=== PATIENT | female | born 1975 | race Caucasian/White ===

== ENCOUNTER 2017-04-04 19:43 | Emergency (ER) | payer OTHER ==
[2017-04-04] MEDS: HYDROCODONE/APAP (5/325) TAB PO (22:08)
[2017-04-04] MEDS: ONDANSETRON (ODT) 4 MG TAB ODT (22:08)
[2017-04-04] MEDS: DIPHTH/TET/ACEL PERTUSS (ADULT) 0.5 ML VIAL IM* (22:10)
[2017-04-04] MEDS: LIDOCAINE 2%/EPI MPF (SDV) 20 ML VIAL INJ (22:10)
[2017-04-04] MEDS: morphine 4 MG/ML VIAL IV (22:31)
[2017-04-04] MEDS: CEFTRIAXONE 1 GM/50 ML (PMX) 50 ML IVPB (22:31)
[2017-04-04] MEDS: VANCOMYCIN 1 GM (PMX) 250 ML IVPB (22:33)
[2017-04-04] MEDS: SOD CHLORIDE 0.9% 1,000 ML IV (22:33)
[2017-04-04] MEDS: LIDOCAINE 1%/EPI 30 ML INJ INJ (23:14)
[2017-04-05] MEDS: DIPHENHYDRAMINE 50 MG INJ IV (00:23)
== END 2017-04-05 01:45 | disposition home or self-care (01) ==
LOC: FTE 04-05 01:45 → E/R 19:43
DX: S81.811A Laceration without foreign body, right lower leg, initial encounter (principal); W54.0XXA Bitten by dog, initial encounter; Y92.9 Unspecified place or not applicable; Z23 Encounter for immunization
CPT/HCPCS: 12004; 73590; 90471; 90715; 96365; 96366; 96368; 96375; 99284-25

== ENCOUNTER 2017-04-07 12:12 | Emergency (ER) | payer OTHER | END 2017-04-07 14:42 | disposition home or self-care (01) | LOC: E/R 14:42 | DX: Z48.01 Encounter for change or removal of surgical wound dressing (principal) | CPT/HCPCS: 99281; Z7502 ==

== ENCOUNTER 2017-04-14 09:47 | Emergency (ER) | payer OTHER | END 2017-04-14 11:32 | disposition home or self-care (01) | LOC: E/R 09:47 | DX: Z48.02 Encounter for removal of sutures (principal) | CPT/HCPCS: 99281; Z7502 ==